=== PATIENT | male | born 1940 | race Caucasian/White ===

== ENCOUNTER 2025-05-02 13:46 | Outpatient (REF) | payer MEDICARE, OTHER, SELFPAY ==
--- OUTSIDE RECORDS SUMMARY | 2025-03-03 15:10 | XMS_ITS | Encounter Summary ---
Author Organization [facility] Address [address] [place] [phone] Phone Care Team Providers Care Information Assurance Manager Name Role Phone Mita Madrigal DO Primary Care Provider + [phone] Encounter Details Date Type Department Care Team (Late st Contact Info) Description 03/03/2025 3:10 PM EDT Hospital Encounter [facility] [address] [place] [address] [phone] Judie Carlos PA-C [address] [place] [address] [email or web address] Social History Tobacco Use Types Packs/Day Years Used Date Smoking Tobacco: Never Assessed Education Answer Date Recorded Are you interested in more education? Not on raza e 03/03/2025 Are you concerned about learning? Not on file 03/03/2025 No 03/03/2025 No 03/03/2025 Digital Access Answer Date Recorded No 03/03/2025 No 03/03/2025 Reliable internet access at home? Not on file 03/03/2025 Device with a working camera? Not on file Sex and Gender Information Value Date Recorded Sex Assigned at Not on file Legal Sex Male 2:43 PM EDT Gender Identity Not on file Sexual Orientation Not on file documented as of this encounter Plan of Treatment Not on file documented as of this encounter Procedures Procedure Name Priority Date/Time Associated Diagnosis Comments XR RIBS 3 OR MORE VIEWS WITH PA CHEST (RIGHT) Routine 03/03/2025 3:18 PM EDT Closed fracture of multiple ribs of right side, initial encounter documented in this encounter Results * XR RIBS 3 OR MORE VIEWS WITH PA CHEST (RIGHT) (03/03/2025 3:18 PM EDT) Anatomical Region Laterality Modality Chest Computed Radiogr aphy 03/03/2025 3:31 PM EDT Impressions 03/03/2025 3:42 PM EDT Acute mildly displaced fractures of the right lateral 8th-10th ribs. No pneumothorax. Narrative 03/03/2025 3:42 PM EDT XR RIBS 3 OR MORE VIEWS WITH PA CHEST (RIGHT) Referring clinician's provided indication for this examination in [facility]: Pain; S/P Fall COMPARISON: None. FINDINGS: Devices/Tubes/Lines: None. Lungs: Left basilar linear opacity, likely subsegmental atelectasis. No focal consolidation or pulmonary edema. Pleura: No pleural effusion or pneumothorax. Heart/Mediastinum: Normal heart and mediastinum. Bones/Soft Tissues: Acute mildly displaced fracture of the right lateral 8th- 10th ribs. Degenerative changes of the spine. Procedure Note Daron Lopez MD - 03/03/2025 XR RIBS 3 OR MORE VIEWS WITH PA CHEST (RIGHT) Referring clinician's provided indication for this examination in [facility]:Pain; S/P Fall COMPARISON: None. FINDINGS: Devices/Tubes/Lines: None. Lungs: Left basilar linear opacity, likely subsegmental atelectasis. Nofocal consolidation or pulmonary edema. Pleura: No pleural effusion or pneumothorax. Heart/Mediastinum: Normal heart and mediastinum. Bones/Soft Tissues: Acute mildly displaced fracture of the right [id number] ribs. Degenerative changes of the spine. IMPRESSION: Acute mildly displaced fractures of the right lateral 8th-10th ribs. Nopneumothorax. Judie Carlos PA-C IMG XR CHEST Final Result documented in this encounter Visit Diagnoses Not on filedocumented in this encounter Care Teams Information Assurance Manager Relationship Specialty Start Date End Date Mita Madrigal DO [address] [place] [address] PCP - General Internal Medicine 03/03/25 documented as of this encounter Additional Source Comments The information contained in this document represents components of the legal health record. It is not the complete legal health record.[facility]
--- OUTSIDE RECORDS SUMMARY | 2025-05-02 14:37 | XMS_ITS | Clinical Summary ---
Author Organization [facility] Address [address] [place] [phone] Phone Care Team Providers Care Well Cleaner Name Role Phone Mita Madrigal DO Primary Care Provider + [phone] Allergies No known active allergies Medications traZODone (DESYREL) 50 MG tablet TAKE 0.5 TABLET BY MOUTH TWO TIMES A DAY NEEDED FOR INSOMNIA 03/01/2025 Active sertraline (ZOLOFT) 50 MG tablet TAKE 1/2 TABLET 25MG) BY MOUTH EVERY MORNING FOR 1 WEEK THEN INCREASE TO 1 TABLET 50MG) DAILY 02/18/2025 Active rosuvastatin (CRESTOR) 40 MG tablet Take 1 tablet by mouth every morning. 02/23/2025 Active gabapentin (NEURONTIN) 300 MG capsule Take 300 mg by mouth 3 (three) times a day. 02/08/2025 Active LANTUS SOLOSTAR U-100 INSULIN 100 unit/mL (3 mL) InPn injection pen INJECT 20 UNITS UNDER THE SKIN EVERY MORNING 02/09/2025 Active levothyroxine (SYNTHROID, LEVOTHROID) 100 MCG tablet Take 100 mcg by mouth every morning. Active losartan (COZAAR) 100 MG tablet Take 100 mg by mouth daily. Active insulin lispro (ADMELOG, HUMALOG) 100 unit/mL injection pen Inject 6 Units under the skin 3 (three) times a day with meals. Sliding scale Active albuterol 90 mcg/actuation inhaler Inhale 2 puffs into the lungs every 6 (six) hours as needed for wheezing. Active metoprolol tartrate (LOPRESSOR) 25 MG tablet Take 25 mg by mouth 2 (two) times a day. Active clopidogrel (PLAVIX) 75 mg tablet Take 75 mg by mouth daily. Active Active Problems Problem Noted Date Diagnosed Date Multiple closed fractures of ribs of right side 03/03/2025 Encounters Date Type Department Care Team Description 03/03/2025 3:10 PM EDT Hospital Encounter [facility] [address] [place] [id number] Judie Carlos PA-C 03/03/2025 2:50 PM EDT Office Visit [facility] at [address] [address] Judie Carlos PA-C Closed fracture of multiple ribs of right side, initial encounter (Primary Dx) from Last 3 Months Social History Tobacco Use Types Packs/Day Years [...] on file Sexual Orientation Not on file Last Filed Vital Signs Vital Sign Reading Time Taken Comments Blood Pressure 93/71 03/03/2025 2:59 PM EDT Pulse 65 03/03/2025 2:59 PM EDT Temperature 37.3 C (99.2 F) 03/03/2025 2:59 PM EDT Respiratory Rate 16 03/03/2025 2:59 PM EDT Oxygen Saturation 99% 03/03/2025 2:59 PM EDT Inhaled Oxygen Concentration - - Weight - - Height - - Body Mass Index - - Plan of Treatment Health Maintenance Due Date Last Done Comments Adult Td,Tdap Booster 1941 CREATININE LEVEL 1941 POTASSIUM LEVEL 1941 TSH LEVEL 1941 DEPRESSION SCREENING 1953 PNEUMOCOCCAL VACCINES (50+ y ears) (1 of 1 - PCV) 1991 ZOSTER VACCINES (1 of 2) 1991 RSV VACCINE (1 - 1-dose 75+ series) 01/21/2016 COVID-19 VACCINE ( - 2023-2 5 season) 2024 HEPATITIS A VACCINES Aged Out No long er eligible based on patient's age to complete this topic HIB VACCINES Aged Out No longer eligi ble based on patient's age to complete this topic MENINGOCOCCAL VACCINES (ACWY) Aged Out No longer eligible based on patient's age to complete this topic MENINGOCOCCAL VACCINES (B) Aged Out N o longer eligible based on patient's age to complete this topic Medical Devices Not on file Procedures Procedure Name Priority Date/Time Associated Diagnosis Comments XR RIBS 3 OR MORE VIEWS WITH PA CHEST (RIGHT) Routine 03/03/2025 3:18 PM EDT Closed fracture of multiple ribs of right side, initial encounter from Last 3 Months Results * XR RIBS 3 OR MORE [...] clinician's provided indication for this examination in Epic: Pain; S/P Fall COMPARISON: None. FINDINGS: Devices/Tubes/Lines: [...] clinician's provided indication for this examination in Epic:Pain; S/P Fall COMPARISON: None. FINDINGS: Devices/Tubes/Lines: None. Lungs: Left basilar linear opacity, likely subsegmental atelectasis. Nofocal consolidation or pulmonary edema. Pleura: No pleural effusion or pneumothorax. Heart/Mediastinum: Normal heart and mediastinum. Bones/Soft Tissues: Acute mildly displaced fracture of the right [id number] ribs. Degenerative changes of the spine. IMPRESSION: Acute mildly displaced fractures of the right lateral 8th-10th ribs. Nopneumothorax. Judie Carlos PA-C IMG XR CHEST Final Result from Last 3 Months [place] [address] MEDICARE PART A & B Member Subscriber Plan / Payer (Ef fective 2021-Present) Name:Navjot Townsend Member ID:[id number] Relation to Subscriber:Self Name:Navjot Townsend Subscriber ID:[id number] Payer ID:[id number] Group ID:Not on file Type:Medicare Address: [address] [place] [id number] MEDICARE SUPPLEMENT MEDICARE PART A & B Member Subscriber Plan / Payer (Ef fective 2021-) Name:Navjot Townsend Member ID:[id number] Relation to Subscriber:Self Name:Navjot Townsend Subscriber ID:[id number] Payer ID:[id number] Group ID:Not on file Type:Medicare Address: [facility] [employer] [facility] [address] MEDICARE SUPPLEMENT MEDICARE PART A & B MEDICARE SUPPLEMENT MEDICARE PART A & B Member Subscriber Plan / Payer (Ef fective 2021-) Name:Navjot Townsend Member ID:[id number] Relation to Subscriber:Self Name:Navjot Townsend Subscriber ID:[id number] Payer ID:[id number] Group ID:Not on file Type:Medicare Address: [employer] [address] MEDICARE SUPPLEMENT ([place]) [address] [place] [address] MEDICARE PART A & B MEDICARE SUPPLEMENT MEDICARE PART A & B [facility] MEDICARE SUPPLEMENT Advance Directives For more information, please contact: [phone] (9AM - 5PM [facility], Wednesday-Wednesday) Healthcare Agents on File Name Relationship Healthcare Agent [facility] Communication irais Townsend Spouse Other (no proxy form on file ) Care Teams Well Cleaner Relationship Specialty Start Date End Date Mita Madrigal DO [address] [facility] [facility] [address] [place] [address] PCP - General Internal Medicine 03/03/25 Additional Source Comments The information contained in this document represents components of the legal health record. It is not the complete legal health record.[facility]
[2025-05-02 18:53] LABS: Thyroid Stimulating Hormone 0.14 uIU/mL (0.32-4.0)
== END 2025-05-02 13:47 | disposition home or self-care (01) ==
LOC: HO.WFDLDS 13:46
PROVIDERS: Visit Provider Internal Medicine
DX: Z00.00 Encounter for general adult medical examination without abnormal findings (principal); E03.9 Hypothyroidism, unspecified
CPT/HCPCS: 36415; 84436; 84443; 84481

== ENCOUNTER 2025-08-10 10:20 | Emergency (ER) | payer MEDICARE, OTHER, SELFPAY ==
--- NOTE | ~2025-08-10 | CT_ITS ---
EXAMINATION: CT HEAD WITHOUT IV CONTRAST HISTORY: ams. TECHNIQUE: Unenhanced helical CT of the head was performed per standard departmental protocol. Coronal and sagittal reformats of the head were also evaluated. One or more of the following techniques was used for dose reduction: Automated exposure control, adjustment of the mA and/or kV according to patient size, use of iterative reconstruction technique. DLP: 701 mGy-cm COMPARISON: There are no prior studies available for comparison. FINDINGS: BRAIN: There is diffuse prominence of the ventricular system and cortical sulci, consistent with atrophy. Periventricular and subcortical white matter hypodensities are noted which are nonspecific, but often seen in the setting of small vessel ischemic disease. There is no mass effect or midline shift. No intra- or extra-axial fluid collections are identified. SINUSES: The visualized paranasal sinuses are clear. The mastoid air cells and middle ear cavities are well pneumatized. ORBITS: The visualized orbits are unremarkable. BONES/SOFT TISSUES: The extracranial soft tissues are unremarkable. The calvarium is intact. No suspicious lytic or sclerotic lesions. CT/CT head/brain wo IV con IMPRESSION: Cerebral atrophy and findings consistent with small vessel ischemic disease of the white matter. No evidence of intracranial hemorrhage. Electronically signed by: Titus Vargas MD 08/10/2025 11:43 AM [facility] [place] [place]
[2025-08-10 10:38] VITALS: BP 149/64; PULSE 73; RESP 18; TEMP 36.3; O2SAT 97
--- NOTE | 2025-08-10 10:43 | ECG_ITS ---
Test Reason : AMS Blood Pressure : */* mmHG Vent. Rate : 65 BPM Atrial Rate : 65 BPM P-R Int : 162 ms QRS Dur : 86 ms QT Int : 394 ms P-R-T Axes : 77 -31 69 degrees QTcB Int : 409 ms Normal sinus rhythm Left axis deviation Anteroseptal infarct , age undetermined Abnormal ECG No previous ECGs available Referred By: Jarrell Toscano Electronically Signed By: THAI COLORADO
[2025-08-10 10:48] VITALS: BP 176/75; PULSE 61; O2SAT 94; BMI 30.4
--- NOTE | 2025-08-10 10:58 | ED_ITS ---
HPI - General Adult General Chief complaint: Altered Mental Status Stated complaint: WANDERING/DOESN'T KNOW WHY,?FAILURE TO THRIVE Time Seen by Provider: 08/10/25 11:20 Source: patient and EMS Mode of arrival: EMS Limitations: altered mental status History of Present Illness ED Provider: MICHAEL Toscano HPI narrative: 85 year old male brought to the emergency department after being found wandering outside for longer than usual. Patient reports feeling ?a little confused.? He denies pain of any kind, chest pain, shortness of breath, nausea, vomiting, or recent falls. He states that he is voiding without difficulty. He acknowledges having been outside earlier despite the cold weather; he was dressed appropriately. He was found coming from the dirt earlier, . Hands noted to be ?a little cool? otherwise warm and functioning. Patient was wearing a winter jacket when found and there were no signs of trauma. Patient is unsure of any formal diagnosis of dementia. Daughter Ciara Galindo works at the hospital. Related Data Home Medications ?Medication ?Instructions ?Recorded ?Confirmed amlodipine 10 mg tablet 10 mg PO DAILY 08/10/2501/28 clopidogrel 75 mg tablet 75 mg PO DAILY 08/10/2501/28 fluticasone fur. 100 mcg-umeclid 1 ea inhalation DAILY 08/10/25 08/10/25 62.5 mcg-vilant 25 mcg inhalat.powder (Trelegy Ellipta) gabapentin 300 mg capsule 300 mg PO TID 08/10/2508/10 insulin glargine 100 unit/mL (3 20 unit subcut QAM 01/2808/10/25 mL) subcutaneous pen (Lantus Solostar U-100 Insulin) insulin lispro 100 unit/mL See Protocol subcut TIDAC 1 10/11/24 08/10/25 subcutaneous pen latanoprost 0.005 % eye drops 1 drp ophthalmic (eye) B EDTIME 08/10/25 08/10/25 levothyroxine 100 mcg tablet 100 mcg PO DAILY 08/10/25 08/10/25 levothyroxine 50 mcg tablet 50 mcg PO DAILY 08/10/25 1 10/11/24 losartan 100 mg tablet 100 mg PO DAILY 08/10/2501/28 metoprolol succinate 25 mg 25 mg PO DAILY 08/10/2501/28 tablet,extended release 24 hr nitroglycerin 0.4 mg sublingual 0.4 mg sublingual N EEDED PRN 08/10/25 08/10/25 tablet Chest Pain rosuvastatin 40 mg tablet 40 mg PO DAILY 08/10/2501/28 sertraline 50 mg tablet 50 mg PO DAILY 08/10/2501/28 tamsulosin 0.4 mg capsule 0.4 mg PO BEDTIME 08/10/25 1 10/11/24 trazodone 50 mg tablet 50 mg PO BID 08/10/25 Allergies Allergy/AdvReac Type Severity Reaction Status Date / Time Unable to Assess Allergy Verified 08/10/25 10:53 Review of Systems 2 Review of Systems: Yes Unobtainable due to mental status PMFSH Past Medical History Attestation statement: The following information was validated with the patient. Source: old records reviewed and nursing notes reviewed Social History Social History Use of substances other than those prescribed or required for medical reasons: No Advance Directives: No Advance Directives Information Provided: Yes Physical Exam ED Exam Exam: General: Elderly male, alert, conversational, no acute distress. Mental Status: Knows own name and location (?[facility],? ?[place]?); unable to state current date; admits to feeling confused. Extremities: Hands slightly cool to touch per inspection; no deformity noted. CV: RRR Lungs: CTA Abd: soft non tender non distended Neuro: normal sensory and motor. Vital Signs: Vital Signs - 24 hr 08/16/25 14:00 08/16/25 21:25 08/17/25 06:20 Temperature 98.2 F 99.7 F 97.9 F Pulse Rate 67 65 61 Respiratory Rate 16 18 16 Blood Pressure 122/56 L 114/56 L 141/59 H Pulse Oximetry 96 94 94 Oxygen Delivery Method Room Air Room Air Room Air 08/17/25 08:36 Temperature Pulse Rate 69 Respiratory Rate 16 Blood Pressure Pulse Oximetry 97 Oxygen Delivery Method Room Air BMI result Body Mass Index 30.4 Course Reevaluation(s) Reevaluation #1: CBC with a normocytic anemia appears to be Around baseline. Chemistry around baseline no acute findings. Coags unremarkable. UA clean. Flu, COVID, RSV negative. 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 Time: 12:30 Reevaluation #2: Family at bedside states she does not feel comfortable caring for him at home she is overwhelmed he continues to elope in the middle of the night and she is afraid something bad may happen. They are requesting psychiatry consult. Time: 13:04 Reevaluation #3: At this time patient will be placed into observation to allow more time to be evaluated by PT, case management and psych. Time: 13:05 Additional Reevaluation(s): 1945 Provider: Agatha Tellez PA-C, rec'd message from RN that patient's med rec has been confirmed, med rec done and ordered. Time: 18:07 Date: 08/11/25 Provider: MICHAEL Castellanos Patient in physician observation for case management needs. No acute events reported overnight.? awaiting case management disposition. Patient had an episode of hypoglycemia this morning, therefore we held long-acting insulin. Patient received his long-acting before bedtime last night which she typically receives in the morning. Will monitor sugars throughout the day today. Awaiting case management disposition. Time: 19:25 Date: 08/12/25 Provider: MICHAEL Castellanos Patient in physician observation for case management needs. Patient's glucose this morning for 66, he did not receive his long-acting insulin therefore given long-acting insulin, repeat blood sugar in 2 hours reveal glucose 437 therefore he was given short-acting insulin. We will continue to monitor. 13:40 08/12/2025 (Dionne Bains PA-C): Sugar is 334 after lunch. Will continue to monitor. 7:27 PM 08/12/2025 (Dionne Bains PA-C): Called over to overflow to have them repeat point of care. Sign out given to Cathleen Hernandez PA-C to monitor glucose +/- needing insulin 9:32pm 08/12/25 (Cathleen Hernandez PA-C): Patient POC 191. No further intervention needed at this time. Time: 08:38 Date: 08/13/25 Provider: Cathleen Hernandez PA-C Patient in physician observation for case management needs. No acute events reported overnight.? No current issues or complaints. VS stable. Awaiting PRANAV VS LTC placement, referrals have been placed by . Will continue to monitor as we await disposition. 0819 08/14/2025 MICHAEL Toscano Physician observation continued. Uneventful night. Vital signs stable. No complaints from nursing overnight. Med reconciliation reviewed and done. Pending disposition. Will continue to monitor. 08/15/2025 1048 Dona Paniagua PA-C ---> Observation continues. Case management continues to follow. 08/16/2025 0858 Dona Paniagua PA-C ---> Observation continues. Case management continues to follow. 08/17/2025 0827 BARRERA Hoffman: Physician observation continued, no overnight events reported by nursing. Vital signs stable. Case management following for disposition. 08/17/25 1133 BARRERA Baez: Per Colette Smith from , patient will be transferred to [facility] at 1430 today, 08/17/25. Observation care revealed that patient does not meet medical necessity for hospitalization. Medications Administered Generic Name Dose Route Start Last Admin Trade Name Freq PRN Reason Stop Dose Admin Amlodipine Besylate 10 mg 08/11/25 09:00 08/17/25 08:37 Amlodipine Besylate 10 Mg Tablet PO 10 mg DAILY SUNIL Administration Protocol Atorvastatin Calcium 80 mg 08/10/25 21:00 08/16/25 20:49 Atorvastatin Calcium 80 Mg Tablet PO 80 mg BEDTIME SUNIL Administration Clopidogrel Bisulfate 75 mg 08/11/25 09:00 08/17/25 08:37 Clopidogrel Bisulfate 75 Mg Tablet PO 75 mg DAILY SUNIL Administration Fluticasone/Umeclidinium/Vilanterol 1 puff 08/11/25 08:00 08/17/25 07:41 Fluticasone/Umeclidinium/Vilanterol 100/62.5/25 Blst.W.Dev INHALE 1 puff RDAILY SUNIL Administration Gabapentin 300 mg 08/10/25 21:00 08/17/25 08:37 Gabapentin 300 Mg Capsule PO 300 mg TID SUNIL Administration Insulin Glargine 20 unit 08/10/25 19:45 08/17/25 08:37 Insulin Glargine,Hum.Rec.Anlog 100 Unit/Ml 10 Ml Vial SUBCUT 20 unit DAILY SUNIL Administration Insulin Human Lispro 0 unit 08/10/25 21:00 08/17/25 07:40 Insulin Lispro 100 Unit/Ml 3 Ml Vial SUBCUT 4 unit QIDACHS SUNIL Administration Protocol Latanoprost 1 drop 08/10/25 21:00 08/16/25 22:05 Latanoprost 0.005 % Ophth Treva 2.5 Ml Drops EYE-BOTH Not Given BEDTIME SUNIL Levothyroxine Sodium 100 mcg 08/11/25 06:00 08/17/25 06:16 Levothyroxine Sodium 100 Mcg Tablet PO 100 mcg DAILY@0600 SUNIL Administration Levothyroxine Sodium 50 mcg 08/11/25 06:00 08/17/25 06:16 Levothyroxine Sodium 50 Mcg Tablet PO 50 mcg DAILY@0600 SUNIL Administration Losartan Potassium 100 mg 08/11/25 09:00 08/17/25 08:37 Losartan Potassium 50 Mg Tablet PO 100 mg DAILY SUNIL Administration Protocol Metoprolol Succinate 25 mg 08/11/25 09:00 08/17/25 08:37 Metoprolol Succinate Er 25 Mg Tab.Er.24h PO 25 mg DAILY SUNIL Administration Protocol Sertraline HCl 50 mg 08/11/25 09:00 08/17/25 08:37 Sertraline Hcl 50 Mg Tablet PO 50 mg DAILY SUNIL Administration Tamsulosin HCl 0.4 mg 08/10/25 21:00 08/16/25 20:49 Tamsulosin Hcl 0.4 Mg Capsule PO 0.4 mg BEDTIME SUNIL Administration Trazodone HCl 50 mg 08/10/25 21:00 08/17/25 08:37 Trazodone Hcl 50 Mg Tablet PO 50 mg BID SUNIL Administration Medical Decision Making Medical Decision Making [facility] Narrative: Patient is an elderly male presenting with acute confusion and episode of prolonged wandering. Patient has a history of wandering outside multiple times, with this episode being longer than usual; details of recovery are unclear per family. Further assessment, diagnostics, and management plan are pending. Problem #1: Altered mental status / wandering Assessment: Patient reports confusion and was found wandering outside for an extended period. Oriented to name and place but not date; denies pain or other acute symptoms. Plan: * labs * imaging of head * urine * will speak to family Differential Diagnosis Differential Diagnoses: The differential diagnosis associated with the presentation includes Differential Diagnosis: * Delirium (multifactorial: possible infection, metabolic derangement, medication effect, environmental exposure) * Dementia (acute exacerbation or undiagnosed) * Hypothermia (recent exposure to cold environment) * Hypoglycemia * Stroke or transient ischemic attack (TIA) * Seizure or post-ictal state * Intoxication (alcohol or other substances) * Primary psychiatric disorder * Dehydration * Trauma (including occult head injury) Admission/Observation Consideration of admission/observation: Escalation of care including admission/observation considered (possible ) Lab Data 08/10/25 11:19 08/10/25 11:19 Labs: Lab Results 08/10/25 08/10/25 08/10/25 Range/Units 11:19 11:50 12:00 WBC 6.5 (4.8-10.8) X10*3/uL RBC 4.60 (4.60-5.80) X10*6/uL Hgb 12.3 L (14.0-18.0) g/dl Hct 37.9 L D (42.0-52.0) % MCV 82.4 (80.0-98.0) fL MCH 26.7 L (27.0-33.0) pg MCHC 32.5 (31.0-36.0) g/dl RDW 13.5 (11.0-16.0) % Plt Count 199 (160-400) X10*3/uL MPV 10.0 (9.4-12.4) fL Immature Gran % (Auto) 0.3 (0.0-0.4) % Neut % (Auto) 75.0 H (45-73) % Lymph % (Auto) 14.5 L (20-40) % [place] % (Auto) 9.4 (2-11) % Eos % (Auto) 0.6 (0-4) % Baso % (Auto) 0.2 (0-2) % Lymph # (Auto) 0.9 L (1.2-4.9) X10*3/uL [place] # (Auto) 0.6 (0.1-1.2) X10*3/uL Eos # (Auto) 0.0 (0.0-0.4) X10*3/uL Baso # (Auto) 0.0 (0.0-0.2) X10*3/uL Abs Immat Gran (auto) 0.02 (0.00-0.03) X10*3/uL Absolute Neuts (auto) 4.9 (2.0-8.3) x10*3/uL Absolute Nucleated RBC 0.000 (0.0-0.012) X10*3/uL Nucleated RBC % (auto) 0.0 (0.0-0.2) /100WBC PT 12.3 (11.2-13.5) SEC INR 1.0 (0.9-1.1) Sodium 140 (135-145) mmol/L Potassium 4.6 (3.3-5.1) mmol/L Chloride 104 (96-108) mmol/L Carbon Dioxide 30 H (22-29) mmol/L Anion Gap 11 L (12-20) BUN 21 H (9-16) mg/dL Creatinine 0.84 (0.5-1.4) mg/dL Estim Creat Clear Calc 58.2 Estimated GFR > 60 POC Glucose 82 (60-115) mg/dL Random Glucose 97 (60-115) mg/dL Calcium 9.6 D (8.4-10.2) mg/dL Magnesium 2.2 (1.6-2.6) mg/dL Total Bilirubin 0.3 (0.0-1.0) mg/dL AST 26 (5-37) U/L ALT 21 (0-40) U/L Alkaline Phosphatase 111 (39-117) U/L Troponin I High Sens 9.4 (<3.5-35.0) ng/L Total Protein 7.2 (6.5-8.0) g/dL Albumin 4.6 (3.5-5.0) g/dL Urine Color Yellow Urine Appearance Clear Urine pH 8.0 (5.0-9.0) Ur Specific Rankin <= 1.005 (1.005-1.025) Urine Protein Negative (Neg-Trace) mg/dL Urine Glucose (UA) Negative (Negative) mg/dL Urine Ketones Negative (Negative) mg/dL Urine Blood Negative (Negative) Urine Nitrite Negative (Negative) Ur Leukocyte Esterase Negative (Negative) Influenza Type A (PCR) NEGATIVE (Negative) Influenza Type B (PCR) NEGATIVE (Negative) RSV RNA Qual (PCR) NEGATIVE (Negative) SARS-CoV-2 RNA (RT-PCR) NEGATIVE (Negative) 08/10/25 08/11/25 08/11/25 Range/Units 20:39 07:13 07:42 WBC (4.8-10.8) X10*3/uL RBC (4.60-5.80) X10*6/uL Hgb (14.0-18.0) g/dl Hct (42.0-52.0) % MCV (80.0-98.0) fL MCH (27.0-33.0) pg MCHC (31.0-36.0) g/dl RDW (11.0-16.0) % Plt Count (160-400) X10*3/uL MPV (9.4-12.4) fL Immature Gran % (Auto) (0.0-0.4) % Neut % (Auto) (45-73) % Lymph % (Auto) (20-40) % [place] % (Auto) (2-11) % Eos % (Auto) (0-4) % Baso % (Auto) (0-2) % Lymph # (Auto) (1.2-4.9) X10*3/uL [place] # (Auto) (0.1-1.2) X10*3/uL Eos # (Auto) (0.0-0.4) X10*3/uL Baso # (Auto) (0.0-0.2) X10*3/uL Abs Immat Gran (auto) (0.00-0.03) X10*3/uL Absolute Neuts (auto) (2.0-8.3) x10*3/uL Absolute Nucleated RBC (0.0-0.012) X10*3/uL Nucleated RBC % (auto) (0.0-0.2) /100WBC PT (11.2-13.5) SEC INR (0.9-1.1) Sodium (135-145) mmol/L Potassium (3.3-5.1) mmol/L Chloride (96-108) mmol/L Carbon Dioxide (22-29) mmol/L Anion Gap (12-20) BUN (9-16) mg/dL Creatinine (0.5-1.4) mg/dL Estim Creat Clear Calc Estimated GFR POC Glucose 210 H 54 L* 79 (60-115) mg/dL Random Glucose (60-115) mg/dL Calcium (8.4-10.2) mg/dL Magnesium (1.6-2.6) mg/dL Total Bilirubin (0.0-1.0) mg/dL AST (5-37) U/L ALT (0-40) U/L Alkaline Phosphatase (39-117) U/L Troponin I High Sens (<3.5-35.0) ng/L Total Protein (6.5-8.0) g/dL Albumin (3.5-5.0) g/dL Urine Color Urine Appearance Urine pH (5.0-9.0) Ur Specific Rankin (1.005-1.025) Urine Protein (Neg-Trace) mg/dL Urine Glucose (UA) (Negative) mg/dL Urine Ketones (Negative) mg/dL Urine Blood (Negative) Urine Nitrite (Negative) Ur Leukocyte Esterase (Negative) Influenza Type A (PCR) (Negative) Influenza Type B (PCR) (Negative) RSV RNA Qual (PCR) (Negative) SARS-CoV-2 RNA (RT-PCR) (Negative) 08/11/25 08/11/25 08/11/25 Range/Units 11:13 16:27 21:10 WBC (4.8-10.8) X10*3/uL RBC (4.60-5.80) X10*6/uL Hgb (14.0-18.0) g/dl Hct (42.0-52.0) % MCV (80.0-98.0) fL MCH (27.0-33.0) pg MCHC (31.0-36.0) g/dl RDW (11.0-16.0) % Plt Count (160-400) X10*3/uL MPV (9.4-12.4) fL Immature Gran % (Auto) (0.0-0.4) % Neut % (Auto) (45-73) % Lymph % (Auto) (20-40) % [place] % (Auto) (2-11) % Eos % (Auto) (0-4) % Baso % (Auto) (0-2) % Lymph # (Auto) (1.2-4.9) X10*3/uL [place] # (Auto) (0.1-1.2) X10*3/uL Eos # (Auto) (0.0-0.4) X10*3/uL Baso # (Auto) (0.0-0.2) X10*3/uL Abs Immat Gran (auto) (0.00-0.03) X10*3/uL Absolute Neuts (auto) (2.0-8.3) x10*3/uL Absolute Nucleated RBC (0.0-0.012) X10*3/uL Nucleated RBC % (auto) (0.0-0.2) /100WBC PT (11.2-13.5) SEC INR (0.9-1.1) Sodium (135-145) mmol/L Potassium (3.3-5.1) mmol/L Chloride (96-108) mmol/L Carbon Dioxide (22-29) mmol/L Anion Gap (12-20) BUN (9-16) mg/dL Creatinine (0.5-1.4) mg/dL Estim Creat Clear Calc Estimated GFR POC Glucose 278 H 288 H 273 H (60-115) mg/dL Random Glucose (60-115) mg/dL Calcium (8.4-10.2) mg/dL Magnesium (1.6-2.6) mg/dL Total Bilirubin (0.0-1.0) mg/dL AST (5-37) U/L ALT (0-40) U/L Alkaline Phosphatase (39-117) U/L Troponin I High Sens (<3.5-35.0) ng/L Total Protein (6.5-8.0) g/dL Albumin (3.5-5.0) g/dL Urine Color Urine Appearance Urine pH (5.0-9.0) Ur Specific Rankin (1.005-1.025) Urine Protein (Neg-Trace) mg/dL Urine Glucose (UA) (Negative) mg/dL Urine Ketones (Negative) mg/dL Urine Blood (Negative) Urine Nitrite (Negative) Ur Leukocyte Esterase (Negative) Influenza Type A (PCR) (Negative) Influenza Type B (PCR) (Negative) RSV RNA Qual (PCR) (Negative) SARS-CoV-2 RNA (RT-PCR) (Negative) 08/12/25 08/12/25 08/12/25 Range/Units 08:14 10:39 13:28 WBC (4.8-10.8) X10*3/uL RBC (4.60-5.80) X10*6/uL Hgb (14.0-18.0) g/dl Hct (42.0-52.0) % MCV (80.0-98.0) fL MCH (27.0-33.0) pg MCHC (31.0-36.0) g/dl RDW (11.0-16.0) % Plt Count (160-400) X10*3/uL MPV (9.4-12.4) fL Immature Gran % (Auto) (0.0-0.4) % Neut % (Auto) (45-73) % Lymph % (Auto) (20-40) % [place] % (Auto) (2-11) % Eos % (Auto) (0-4) % Baso % (Auto) (0-2) % Lymph # (Auto) (1.2-4.9) X10*3/uL [place] # (Auto) (0.1-1.2) X10*3/uL Eos # (Auto) (0.0-0.4) X10*3/uL Baso # (Auto) (0.0-0.2) X10*3/uL Abs Immat Gran (auto) (0.00-0.03) X10*3/uL Absolute Neuts (auto) (2.0-8.3) x10*3/uL Absolute Nucleated RBC (0.0-0.012) X10*3/uL Nucleated RBC % (auto) (0.0-0.2) /100WBC PT (11.2-13.5) SEC INR (0.9-1.1) Sodium (135-145) mmol/L Potassium (3.3-5.1) mmol/L Chloride (96-108) mmol/L Carbon Dioxide (22-29) mmol/L Anion Gap (12-20) BUN (9-16) mg/dL Creatinine (0.5-1.4) mg/dL Estim Creat Clear Calc Estimated GFR POC Glucose 466 H* 437 H* 334 H (60-115) mg/dL Random Glucose (60-115) mg/dL Calcium (8.4-10.2) mg/dL Magnesium (1.6-2.6) mg/dL Total Bilirubin (0.0-1.0) mg/dL AST (5-37) U/L ALT (0-40) U/L Alkaline Phosphatase (39-117) U/L Troponin I High Sens (<3.5-35.0) ng/L Total Protein (6.5-8.0) g/dL Albumin (3.5-5.0) g/dL Urine Color Urine Appearance Urine pH (5.0-9.0) Ur Specific Rankin (1.005-1.025) Urine Protein (Neg-Trace) mg/dL Urine Glucose (UA) (Negative) mg/dL Urine Ketones (Negative) mg/dL Urine Blood (Negative) Urine Nitrite (Negative) Ur Leukocyte Esterase (Negative) Influenza Type A (PCR) (Negative) Influenza Type B (PCR) (Negative) RSV RNA Qual (PCR) (Negative) SARS-CoV-2 RNA (RT-PCR) (Negative) 08/12/25 08/12/25 08/13/25 Range/Units 15:57 19:34 07:26 WBC (4.8-10.8) X10*3/uL RBC (4.60-5.80) X10*6/uL Hgb (14.0-18.0) g/dl Hct (42.0-52.0) % MCV (80.0-98.0) fL MCH (27.0-33.0) pg MCHC (31.0-36.0) g/dl RDW (11.0-16.0) % Plt Count (160-400) X10*3/uL MPV (9.4-12.4) fL Immature Gran % (Auto) (0.0-0.4) % Neut % (Auto) (45-73) % Lymph % (Auto) (20-40) % [place] % (Auto) (2-11) % Eos % (Auto) (0-4) % Baso % (Auto) (0-2) % Lymph # (Auto) (1.2-4.9) X10*3/uL [place] # (Auto) (0.1-1.2) X10*3/uL Eos # (Auto) (0.0-0.4) X10*3/uL Baso # (Auto) (0.0-0.2) X10*3/uL Abs Immat Gran (auto) (0.00-0.03) X10*3/uL Absolute Neuts (auto) (2.0-8.3) x10*3/uL Absolute Nucleated RBC (0.0-0.012) X10*3/uL Nucleated RBC % (auto) (0.0-0.2) /100WBC PT (11.2-13.5) SEC INR (0.9-1.1) Sodium (135-145) mmol/L Potassium (3.3-5.1) mmol/L Chloride (96-108) mmol/L Carbon Dioxide (22-29) mmol/L Anion Gap (12-20) BUN (9-16) mg/dL Creatinine (0.5-1.4) mg/dL Estim Creat Clear Calc Estimated GFR POC Glucose 373 H* 191 H 176 H (60-115) mg/dL Random Glucose (60-115) mg/dL Calcium (8.4-10.2) mg/dL Magnesium (1.6-2.6) mg/dL Total Bilirubin (0.0-1.0) mg/dL AST (5-37) U/L ALT (0-40) U/L Alkaline Phosphatase (39-117) U/L Troponin I High Sens (<3.5-35.0) ng/L Total Protein (6.5-8.0) g/dL Albumin (3.5-5.0) g/dL Urine Color Urine Appearance Urine pH (5.0-9.0) Ur Specific Rankin (1.005-1.025) Urine Protein (Neg-Trace) mg/dL Urine Glucose (UA) (Negative) mg/dL Urine Ketones (Negative) mg/dL Urine Blood (Negative) Urine Nitrite (Negative) Ur Leukocyte Esterase (Negative) Influenza Type A (PCR) (Negative) Influenza Type B (PCR) (Negative) RSV RNA Qual (PCR) (Negative) SARS-CoV-2 RNA (RT-PCR) (Negative) 08/13/25 08/13/25 08/13/25 Range/Units 11:40 16:48 20:18 WBC (4.8-10.8) X10*3/uL RBC (4.60-5.80) X10*6/uL Hgb (14.0-18.0) g/dl Hct (42.0-52.0) % MCV (80.0-98.0) fL MCH (27.0-33.0) pg MCHC (31.0-36.0) g/dl RDW (11.0-16.0) % Plt Count (160-400) X10*3/uL MPV (9.4-12.4) fL Immature Gran % (Auto) (0.0-0.4) % Neut % (Auto) (45-73) % Lymph % (Auto) (20-40) % [place] % (Auto) (2-11) % Eos % (Auto) (0-4) % Baso % (Auto) (0-2) % Lymph # (Auto) (1.2-4.9) X10*3/uL [place] # (Auto) (0.1-1.2) X10*3/uL Eos # (Auto) (0.0-0.4) X10*3/uL Baso # (Auto) (0.0-0.2) X10*3/uL Abs Immat Gran (auto) (0.00-0.03) X10*3/uL Absolute Neuts (auto) (2.0-8.3) x10*3/uL Absolute Nucleated RBC (0.0-0.012) X10*3/uL Nucleated RBC % (auto) (0.0-0.2) /100WBC PT (11.2-13.5) SEC INR (0.9-1.1) Sodium (135-145) mmol/L Potassium (3.3-5.1) mmol/L Chloride (96-108) mmol/L Carbon Dioxide (22-29) mmol/L Anion Gap (12-20) BUN (9-16) mg/dL Creatinine (0.5-1.4) mg/dL Estim Creat Clear Calc Estimated GFR POC Glucose 288 H 217 H 205 H (60-115) mg/dL Random Glucose (60-115) mg/dL Calcium (8.4-10.2) mg/dL Magnesium (1.6-2.6) mg/dL Total Bilirubin (0.0-1.0) mg/dL AST (5-37) U/L ALT (0-40) U/L Alkaline Phosphatase (39-117) U/L Troponin I High Sens (<3.5-35.0) ng/L Total Protein (6.5-8.0) g/dL Albumin (3.5-5.0) g/dL Urine Color Urine Appearance Urine pH (5.0-9.0) Ur Specific Rankin (1.005-1.025) Urine Protein (Neg-Trace) mg/dL Urine Glucose (UA) (Negative) mg/dL Urine Ketones (Negative) mg/dL Urine Blood (Negative) Urine Nitrite (Negative) Ur Leukocyte Esterase (Negative) Influenza Type A (PCR) (Negative) Influenza Type B (PCR) (Negative) RSV RNA Qual (PCR) (Negative) SARS-CoV-2 RNA (RT-PCR) (Negative) 08/14/25 08/14/25 08/14/25 Range/Units 07:36 11:34 15:59 WBC (4.8-10.8) X10*3/uL RBC (4.60-5.80) X10*6/uL Hgb (14.0-18.0) g/dl Hct (42.0-52.0) % MCV (80.0-98.0) fL MCH (27.0-33.0) pg MCHC (31.0-36.0) g/dl RDW (11.0-16.0) % Plt Count (160-400) X10*3/uL MPV (9.4-12.4) fL Immature Gran % (Auto) (0.0-0.4) % Neut % (Auto) (45-73) % Lymph % (Auto) (20-40) % [place] % (Auto) (2-11) % Eos % (Auto) (0-4) % Baso % (Auto) (0-2) % Lymph # (Auto) (1.2-4.9) X10*3/uL [place] # (Auto) (0.1-1.2) X10*3/uL Eos # (Auto) (0.0-0.4) X10*3/uL Baso # (Auto) (0.0-0.2) X10*3/uL Abs Immat Gran (auto) (0.00-0.03) X10*3/uL Absolute Neuts (auto) (2.0-8.3) x10*3/uL Absolute Nucleated RBC (0.0-0.012) X10*3/uL Nucleated RBC % (auto) (0.0-0.2) /100WBC PT (11.2-13.5) SEC INR (0.9-1.1) Sodium (135-145) mmol/L Potassium (3.3-5.1) mmol/L Chloride (96-108) mmol/L Carbon Dioxide (22-29) mmol/L Anion Gap (12-20) BUN (9-16) mg/dL Creatinine (0.5-1.4) mg/dL Estim Creat Clear Calc Estimated GFR POC Glucose 283 H 298 H 335 H (60-115) mg/dL Random Glucose (60-115) mg/dL Calcium (8.4-10.2) mg/dL Magnesium (1.6-2.6) mg/dL Total Bilirubin (0.0-1.0) mg/dL AST (5-37) U/L ALT (0-40) U/L Alkaline Phosphatase (39-117) U/L Troponin I High Sens (<3.5-35.0) ng/L Total Protein (6.5-8.0) g/dL Albumin (3.5-5.0) g/dL Urine Color Urine Appearance Urine pH (5.0-9.0) Ur Specific Rankin (1.005-1.025) Urine Protein (Neg-Trace) mg/dL Urine Glucose (UA) (Negative) mg/dL Urine Ketones (Negative) mg/dL Urine Blood (Negative) Urine Nitrite (Negative) Ur Leukocyte Esterase (Negative) Influenza Type A (PCR) (Negative) Influenza Type B (PCR) (Negative) RSV RNA Qual (PCR) (Negative) SARS-CoV-2 RNA (RT-PCR) (Negative) 08/14/25 08/15/25 08/15/25 Range/Units 20:16 07:47 11:43 WBC (4.8-10.8) X10*3/uL RBC (4.60-5.80) X10*6/uL Hgb (14.0-18.0) g/dl Hct (42.0-52.0) % MCV (80.0-98.0) fL MCH (27.0-33.0) pg MCHC (31.0-36.0) g/dl RDW (11.0-16.0) % Plt Count (160-400) X10*3/uL MPV (9.4-12.4) fL Immature Gran % (Auto) (0.0-0.4) % Neut % (Auto) (45-73) % Lymph % (Auto) (20-40) % [place] % (Auto) (2-11) % Eos % (Auto) (0-4) % Baso % (Auto) (0-2) % Lymph # (Auto) (1.2-4.9) X10*3/uL [place] # (Auto) (0.1-1.2) X10*3/uL Eos # (Auto) (0.0-0.4) X10*3/uL Baso # (Auto) (0.0-0.2) X10*3/uL Abs Immat Gran (auto) (0.00-0.03) X10*3/uL Absolute Neuts (auto) (2.0-8.3) x10*3/uL Absolute Nucleated RBC (0.0-0.012) X10*3/uL Nucleated RBC % (auto) (0.0-0.2) /100WBC PT (11.2-13.5) SEC INR (0.9-1.1) Sodium (135-145) mmol/L Potassium (3.3-5.1) mmol/L Chloride (96-108) mmol/L Carbon Dioxide (22-29) mmol/L Anion Gap (12-20) BUN (9-16) mg/dL Creatinine (0.5-1.4) mg/dL Estim Creat Clear Calc Estimated GFR POC Glucose 107 212 H 152 H (60-115) mg/dL Random Glucose (60-115) mg/dL Calcium (8.4-10.2) mg/dL Magnesium (1.6-2.6) mg/dL Total Bilirubin (0.0-1.0) mg/dL AST (5-37) U/L ALT (0-40) U/L Alkaline Phosphatase (39-117) U/L Troponin I High Sens (<3.5-35.0) ng/L Total Protein (6.5-8.0) g/dL Albumin (3.5-5.0) g/dL Urine Color Urine Appearance Urine pH (5.0-9.0) Ur Specific Rankin (1.005-1.025) Urine Protein (Neg-Trace) mg/dL Urine Glucose (UA) (Negative) mg/dL Urine Ketones (Negative) mg/dL Urine Blood (Negative) Urine Nitrite (Negative) Ur Leukocyte Esterase (Negative) Influenza Type A (PCR) (Negative) Influenza Type B (PCR) (Negative) RSV RNA Qual (PCR) (Negative) SARS-CoV-2 RNA (RT-PCR) (Negative) 08/15/25 08/15/25 08/16/25 Range/Units 16:34 19:53 07:35 WBC (4.8-10.8) X10*3/uL RBC (4.60-5.80) X10*6/uL Hgb (14.0-18.0) g/dl Hct (42.0-52.0) % MCV (80.0-98.0) fL MCH (27.0-33.0) pg MCHC (31.0-36.0) g/dl RDW (11.0-16.0) % Plt Count (160-400) X10*3/uL MPV (9.4-12.4) fL Immature Gran % (Auto) (0.0-0.4) % Neut % (Auto) (45-73) % Lymph % (Auto) (20-40) % [place] % (Auto) (2-11) % Eos % (Auto) (0-4) % Baso % (Auto) (0-2) % Lymph # (Auto) (1.2-4.9) X10*3/uL [place] # (Auto) (0.1-1.2) X10*3/uL Eos # (Auto) (0.0-0.4) X10*3/uL Baso # (Auto) (0.0-0.2) X10*3/uL Abs Immat Gran (auto) (0.00-0.03) X10*3/uL Absolute Neuts (auto) (2.0-8.3) x10*3/uL Absolute Nucleated RBC (0.0-0.012) X10*3/uL Nucleated RBC % (auto) (0.0-0.2) /100WBC PT (11.2-13.5) SEC INR (0.9-1.1) Sodium (135-145) mmol/L Potassium (3.3-5.1) mmol/L Chloride (96-108) mmol/L Carbon Dioxide (22-29) mmol/L Anion Gap (12-20) BUN (9-16) mg/dL Creatinine (0.5-1.4) mg/dL Estim Creat Clear Calc Estimated GFR POC Glucose 95 175 H 164 H (60-115) mg/dL Random Glucose (60-115) mg/dL Calcium (8.4-10.2) mg/dL Magnesium (1.6-2.6) mg/dL Total Bilirubin (0.0-1.0) mg/dL AST (5-37) U/L ALT (0-40) U/L Alkaline Phosphatase (39-117) U/L Troponin I High Sens (<3.5-35.0) ng/L Total Protein (6.5-8.0) g/dL Albumin (3.5-5.0) g/dL Urine Color Urine Appearance Urine pH (5.0-9.0) Ur Specific [place] (1.005-1.025) Urine Protein (Neg-Trace) mg/dL Urine Glucose (UA) (Negative) mg/dL Urine Ketones (Negative) mg/dL Urine Blood (Negative) Urine Nitrite (Negative) Ur Leukocyte Esterase (Negative) Influenza Type A (PCR) (Negative) Influenza Type B (PCR) (Negative) RSV RNA Qual (PCR) (Negative) SARS-CoV-2 RNA (RT-PCR) (Negative) 08/16/25 08/16/25 08/16/25 Range/Units 11:17 16:03 20:27 WBC (4.8-10.8) X10*3/uL RBC (4.60-5.80) X10*6/uL Hgb (14.0-18.0) g/dl Hct (42.0-52.0) % MCV (80.0-98.0) fL MCH (27.0-33.0) pg MCHC (31.0-36.0) g/dl RDW (11.0-16.0) % Plt Count (160-400) X10*3/uL MPV (9.4-12.4) fL Immature Gran % (Auto) (0.0-0.4) % Neut % (Auto) (45-73) % Lymph % (Auto) (20-40) % [place] % (Auto) (2-11) % Eos % (Auto) (0-4) % Baso % (Auto) (0-2) % Lymph # (Auto) (1.2-4.9) X10*3/uL [place] # (Auto) (0.1-1.2) X10*3/uL Eos # (Auto) (0.0-0.4) X10*3/uL Baso # (Auto) (0.0-0.2) X10*3/uL Abs Immat Gran (auto) (0.00-0.03) X10*3/uL Absolute Neuts (auto) (2.0-8.3) x10*3/uL Absolute Nucleated RBC (0.0-0.012) X10*3/uL Nucleated RBC % (auto) (0.0-0.2) /100WBC PT (11.2-13.5) SEC INR (0.9-1.1) Sodium (135-145) mmol/L Potassium (3.3-5.1) mmol/L Chloride (96-108) mmol/L Carbon Dioxide (22-29) mmol/L Anion Gap (12-20) BUN (9-16) mg/dL Creatinine (0.5-1.4) mg/dL Estim Creat Clear Calc Estimated GFR POC Glucose 273 H 195 H 130 H (60-115) mg/dL Random Glucose (60-115) mg/dL Calcium (8.4-10.2) mg/dL Magnesium (1.6-2.6) mg/dL Total Bilirubin (0.0-1.0) mg/dL AST (5-37) U/L ALT (0-40) U/L Alkaline Phosphatase (39-117) U/L Troponin I High Sens (<3.5-35.0) ng/L Total Protein (6.5-8.0) g/dL Albumin (3.5-5.0) g/dL Urine Color Urine Appearance Urine pH (5.0-9.0) Ur Specific [place] (1.005-1.025) Urine Protein (Neg-Trace) mg/dL Urine Glucose (UA) (Negative) mg/dL Urine Ketones (Negative) mg/dL Urine Blood (Negative) Urine Nitrite (Negative) Ur Leukocyte Esterase (Negative) Influenza Type A (PCR) (Negative) Influenza Type B (PCR) (Negative) RSV RNA Qual (PCR) (Negative) SARS-CoV-2 RNA (RT-PCR) (Negative) 08/17/25 08/17/25 Range/Units 06:59 11:08 WBC (4.8-10.8) X10*3/uL RBC (4.60-5.80) X10*6/uL Hgb (14.0-18.0) g/dl Hct (42.0-52.0) % MCV (80.0-98.0) fL MCH (27.0-33.0) pg MCHC (31.0-36.0) g/dl RDW (11.0-16.0) % Plt Count (160-400) X10*3/uL MPV (9.4-12.4) fL Immature Gran % (Auto) (0.0-0.4) % Neut % (Auto) (45-73) % Lymph % (Auto) (20-40) % [place] % (Auto) (2-11) % Eos % (Auto) (0-4) % Baso % (Auto) (0-2) % Lymph # (Auto) (1.2-4.9) X10*3/uL [place] # (Auto) (0.1-1.2) X10*3/uL Eos # (Auto) (0.0-0.4) X10*3/uL Baso # (Auto) (0.0-0.2) X10*3/uL Abs Immat Gran (auto) (0.00-0.03) X10*3/uL Absolute Neuts (auto) (2.0-8.3) x10*3/uL Absolute Nucleated RBC (0.0-0.012) X10*3/uL Nucleated RBC % (auto) (0.0-0.2) /100WBC PT (11.2-13.5) SEC INR (0.9-1.1) Sodium (135-145) mmol/L Potassium (3.3-5.1) mmol/L Chloride (96-108) mmol/L Carbon Dioxide (22-29) mmol/L Anion Gap (12-20) BUN (9-16) mg/dL Creatinine (0.5-1.4) mg/dL Estim Creat Clear Calc Estimated GFR POC Glucose 210 H 285 H (60-115) mg/dL Random Glucose (60-115) mg/dL Calcium (8.4-10.2) mg/dL Magnesium (1.6-2.6) mg/dL Total Bilirubin (0.0-1.0) mg/dL AST (5-37) U/L ALT (0-40) U/L Alkaline Phosphatase (39-117) U/L Troponin I High Sens (<3.5-35.0) ng/L Total Protein (6.5-8.0) g/dL Albumin (3.5-5.0) g/dL Urine Color Urine Appearance Urine pH (5.0-9.0) Ur Specific [place] (1.005-1.025) Urine Protein (Neg-Trace) mg/dL Urine Glucose (UA) (Negative) mg/dL Urine Ketones (Negative) mg/dL Urine Blood (Negative) Urine Nitrite (Negative) Ur Leukocyte Esterase (Negative) Influenza Type A (PCR) (Negative) Influenza Type B (PCR) (Negative) RSV RNA Qual (PCR) (Negative) SARS-CoV-2 RNA (RT-PCR) (Negative) Independent Interpretation I performed an independent interpretation of an: EKG (non diagnostic for cc ) and CT Scan Radiology Impression Discussion of test interpretation with radiology: I have reviewed the radiologist's reading. Independent Historian Clinical information obtained from an independent historian. History obtained from or confirmed by: EMS External Record Review External record reviewed: Inpatient record, Office record, Outpatient record, Prior outpatient labs, Prior outpatient radiology, Primary care record and Outside ED record Chronic Conditions Patient?s care impacted by: Other (unclear at this time will speak to family ) Discharge Plan Discharge Clinical Impression: Dementia Patient Disposition: er [facility] Transfer Details: to [facility] Prescriptions: No Action latanoprost 0.005 % drops 1 drp ophthalmic (eye) BEDTIME trazodone 50 mg tablet 50 mg PO BID clopidogrel 75 mg tablet 75 mg PO DAILY levothyroxine 100 mcg tablet 100 mcg PO DAILY tamsulosin 0.4 mg capsule 0.4 mg PO BEDTIME amlodipine 10 mg tablet 10 mg PO DAILY levothyroxine 50 mcg tablet 50 mcg PO DAILY gabapentin 300 mg capsule 300 mg PO TID metoprolol succinate 25 mg tablet extended release 24 hr 25 mg PO DAILY losartan 100 mg tablet 100 mg PO DAILY sertraline 50 mg tablet 50 mg PO DAILY rosuvastatin 40 mg tablet 40 mg PO DAILY insulin glargine [Lantus Solostar U-100 Insulin] 100 unit/mL (3 mL) insulin pen 20 unit subcut QA Trelegy Ellipta 100-62.5-25 mcg blister with device 1 ea INHALATION DAILY nitroglycerin 0.4 mg tablet, sublingual 0.4 mg sublingual NEEDED PRN (Reason: Chest Pain) insulin lispro 100 unit/mL insulin pen See Protocol subcut TIDAC Protocol: Insulin Correction Scale Less than or equal to 110 ---- Give (units): 0 111 to 150 Give (units): 0 151 to 200 Give (units): 2 201 to 250 Give (units): 4 251 to 300 Give (units): 6 301 to 350 Give (units): 8 Greater than 350 Give (units): 10 Call MD if Blood Glucose > : 350 Referrals: [facility] [Other] Referral Note: [facility] Mita Madrigal DO [Primary Care Provider, Family Practice] Print Language: Turkmen
[2025-08-10 11:27] LABS: MANUAL DIFF FLAG NO
[2025-08-10 11:29] LABS: Hematocrit 37.9 % (42.0-52.0); Hemoglobin 12.3 g/dl (14.0-18.0); Imm Gran Abs Auto 0.02 X10*3/uL (0.00-0.03); Imm Gran Pct Auto 0.3 % (0.0-0.4); Lymphocytes Absolute Auto 0.9 X10*3/uL (1.2-4.9); Mean Corpuscular HGB Conc 32.5 g/dl (31.0-36.0); Mean Corpuscular Hemoglobin 26.7 pg (27.0-33.0); Mean Corpuscular Volume 82.4 fL (80.0-98.0); NRBC Abs Auto 0.000 X10*3/uL (0.0-0.012); NRBC Pct Auto 0.0 /100WBC (0.0-0.2); Platelet Count 199 X10*3/uL (160-400); Red Blood Count 4.60 X10*6/uL (4.60-5.80); White Blood Count 6.5 X10*3/uL (4.8-10.8)
[2025-08-10 11:37] LABS: INTERNATIONAL NORM RATIO 1.0 (0.9-1.1); Prothrombin Time 12.3 SEC (11.2-13.5)
[2025-08-10 11:46] LABS: Alanine Aminotransferase 21 U/L (0-40); Albumin Level 4.6 g/dL (3.5-5.0); Alkaline Phosphatase 111 U/L (39-117); Anion Gap 11 (12-20); Aspartate Amino Transferase 26 U/L (5-37); Blood Urea Nitrogen 21 mg/dL (9-16); Calcium 9.6 mg/dL (8.4-10.2); Carbon Dioxide 30 mmol/L (22-29); Chloride 104 mmol/L (96-108); Creatinine Clr Calc Pharmacy 58.2; Estimated Glomerular Filt Rate > 60; Magnesium 2.2 mg/dL (1.6-2.6); Potassium 4.6 mmol/L (3.3-5.1); Sodium 140 mmol/L (135-145); Total Protein 7.2 g/dL (6.5-8.0)
[2025-08-10 11:53] LABS: Troponin-I High Sensitivity 9.4 ng/L (<3.5-35.0)
[2025-08-10 11:55] LABS: Glucose, Whole Blood 82 mg/dL (60-115)
[2025-08-10 12:08] LABS: Resp Syncy Virus RNA Qual PCR NEGATIVE (Negative); SARS COV2 PCR INHOUSE NEGATIVE (Negative)
[2025-08-10 12:10] LABS: Appearance Urine Clear; Glucose Urine UA Negative (Negative); PH 8.0 (5.0-9.0); Specific Gravity - Urine <= 1.005 (1.005-1.025)
--- NOTE | 2025-08-10 13:37 | PC.NURSE ---
PT here for eval
[2025-08-10 13:59] VITALS: BP 168/61; PULSE 68; RESP 18; TEMP 36.9; O2SAT 96
[2025-08-10 14:04] VITALS: BP 168/61; PULSE 68; O2SAT 96
--- NOTE | 2025-08-10 15:03 | PM.PSYCN ---
History of Present Illness Date of Service: 08/10/2025 Chief Complaint: WANDERING/DOESN'T KNOW WHY,?FAILURE TO THRIVE Requesting physician: Jarrell Toscano Discussed with referring provider: Yes Sources of Information: patient interviewed, chart reviewed and crisis/core team assessment reviewed HPI Narrative: Mr. Townsend is an 85 year-old male with hx of dementia. Pt was brought in by family due to wondering. Pertinent labs completed in the ED include CBC with normocytic anemia, stable H&H; CMP without electrolyte abnormalities. BUN 21, Cr 0.84, creatinine clearance 58. UA not suggestive of UTI. Pt seen in the ED with his and daughter by his side. He is lying in bed in NAD. He reports he woke up yesterday and the police arrest him and now he is here which he reports he does not know where he is. He does not know the year nor the month. reports they live together. She states pt sometimes does not sleep and she is up. She reports he has been wondering, leaving the house and then found by either police or one of her daughters who live 1 hors away from them. She reports it is taking a toll on her and she is finding more and more difficult to keep him safe at home. Pt has not been aggressive. No signs of VH/AH. No signs of delusions. Diagnostics Vital Signs (24Hr): Vital Signs - 24 hr 08/10/25 10:38 08/10/25 13:59 08/10/25 14:04 Temperature 97.4 F 98.5 F Pulse Rate 73 68 68 Respiratory Rate 18 18 Blood Pressure 149/64 H 168/61 H 168/61 H Pulse Oximetry 97 96 96 Oxygen Delivery Method Room Air Room Air BMI result Body Mass Index 30.4 Labs 08/10/25 11:19 08/10/25 11:19 Labs: Laboratory Results - last 48 hr 08/10/25 08/10/25 08/10/25 11:19 11:50 12:00 WBC 6.5 RBC 4.60 Hgb 12.3 L Hct 37.9 L D MCV 82.4 MCH 26.7 L MCHC 32.5 RDW 13.5 Plt Count 199 MPV 10.0 Immature Gran % (Auto) 0.3 Neut % (Auto) 75.0 H Lymph % (Auto) 14.5 L [place] % (Auto) 9.4 Eos % (Auto) 0.6 Baso % (Auto) 0.2 Lymph # (Auto) 0.9 L [place] # (Auto) 0.6 Eos # (Auto) 0.0 Baso # (Auto) 0.0 Abs Immat Gran (auto) 0.02 Absolute Neuts (auto) 4.9 Absolute Nucleated RBC 0.000 Nucleated RBC % (auto) 0.0 PT 12.3 INR 1.0 Sodium 140 Potassium 4.6 Chloride 104 Carbon Dioxide 30 H Anion Gap 11 L BUN 21 H Creatinine 0.84 Estim Creat Clear Calc 58.2 Estimated GFR > 60 POC Glucose 82 Random Glucose 97 Calcium 9.6 D Magnesium 2.2 Total Bilirubin 0.3 AST 26 ALT 21 Alkaline Phosphatase 111 Troponin I High Sens 9.4 Total Protein 7.2 Albumin 4.6 Urine Color Yellow Urine Appearance Clear Urine pH 8.0 Ur Specific [place] <= 1.005 Urine Protein Negative Urine Glucose (UA) Negative Urine Ketones Negative Urine Blood Negative Urine Nitrite Negative Ur Leukocyte Esterase Negative Influenza Type A (PCR) NEGATIVE Influenza Type B (PCR) NEGATIVE RSV RNA Qual (PCR) NEGATIVE SARS-CoV-2 RNA (RT-PCR) NEGATIVE Imaging Radiology Impressions: ITS Impressions Head CT 08/10/25 11:28 IMPRESSION: Cerebral atrophy and findings consistent with small vessel ischemic disease of the white matter. No evidence of intracranial hemorrhage. Electronically signed by: Titus Vargas MD 08/10/2025 11:43 AM [facility] Mental Status Exam Mental Status Exam Narrative: Appearance: wearing hospital gown fair hygiene, in NAD Behavior: cooperative Psychomotor: no agitation or retardation noted. Noted resting tremor on right hand. Speech: with expressive/receptive aphasia, spontaneous Mood: good Affect: congruent SI: none HI: none VH/AH: no overt signs Delusions: confabulation Insight/judgement: impaired x 2. Memory/cog: alert, oriented only to self. advanced dementia. Medications Medications Current Medications Acetaminophen (Acetaminophen 325 Mg Tablet) 650 mg PO Q6H PRN PRN Reason: Pain, Mild 1-3,fever,headache Allergies Allergies Allergy/AdvReac Type Severity Reaction Status Date / Time Unable to Assess Allergy Verified 08/10/25 10:53 Assessment & Plan Assessment & Plan (1) Alzheimer's disease with late onset: Status: Acute Code(s): G30.1 - Alzheimer's disease with late onset; F02.80 - Dementia in other diseases classified elsewhere, unspecified severity, without behavioral disturbance, psychotic disturbance, mood disturbance, and anxiety Plan Mr. Townsend is an 85 year-old male with advanced dementia. He is wondering, unable to care for him. No other supports at home to keep both of them safe. Family would like to pursue LTC placement at this time. PLAN 1. No need for inpt [facility] psych as there are no symptoms that can be treated and expected to improve. 2. Placement- memory unit. Total time managing care of this patient today ____ minutes.
--- NOTE | 2025-08-10 16:19 | MHC.CM.ED ---
Received consult for assessment of d/c needs: pt brought in by after being found outside. Pt w/hx dementia and wandering and per spouse, pt doesn't sleep for more than 2-3 hours at a time. No services or DME at home. Spouse states she is unable to keep pt safe at home: has alarms but not installed, police have brought pt back to home x 3 this month. Family not available to assist w/care needs at this time. Spouse has an appt w[facility] next week but is requesting respite or ST placement until she can secure alternative living arrangements. is aware that locked units are in short supply - she is able to private pay for a short period of time if needed. Pt passed PT eval: seen by Leeanne from psych and found to be unsafe to return to home. ED CM to place referrals for a locked dementia unit until other living arrangements are secured by family. HCP copy requested
--- NOTE | 2025-08-10 16:57 | PC.NURSE ---
Report to FELICIA Merrill
--- NOTE | 2025-08-10 19:57 | PHA.MEDREC ---
Pharmacy Consult ? Medication Reconciliation Pharmacy has reviewed the medication reconciliation done by nursing, also added in insulin lispro tidac per sliding scale and nitroglycerin 0.4 mg tablets per pharmacy claims.
[2025-08-10 20:00] VITALS: BP 145/73; PULSE 79; RESP 18; TEMP 36.2; O2SAT 95
[2025-08-10 20:43] LABS: Glucose, Whole Blood 210 mg/dL (60-115)
[2025-08-10] MEDS: Insulin Glargine,Hum.rec.anlog 100 UNIT/ML 10 ML VIAL 20 UNIT SUBCUT (20:45)
[2025-08-10] MEDS: Latanoprost 0.005 % Ophth Sol 2.5 ML DROPS 1 DROP EYE-BOTH (20:45)
--- NOTE | 2025-08-10 23:07 | MHC.CM.ED ---
CM met with patient and family. HCP is at home. will look for it. If she cannot find it, CM will make another. HCP/daughter Mery Townsend () [phone] and daughter Ciara Townsend O'Shun ([phone]). PCP is Haydee Madrigal MD at [facility]. Given a listing of local [facility] with memory care and dementia levels of care. Family has appointment at [facility] next week. Family agreeable to LTC referrals. Will private pay. Family more interested in [facility] than LTC. Referrals made. Pt needs a locked unit, as he wanders.
[2025-08-11 05:28] VITALS: BP 129/60; PULSE 74; RESP 14; TEMP 36.7; O2SAT 96
[2025-08-11 07:20] LABS: Glucose, Whole Blood 54 mg/dL (60-115)
[2025-08-11 07:46] LABS: Glucose, Whole Blood 79 mg/dL (60-115)
[2025-08-11] MEDS: Metoprolol Succinate ER 25 MG TAB.ER.24H PO (09:17)
[2025-08-11 11:16] LABS: Glucose, Whole Blood 278 mg/dL (60-115)
[2025-08-11 14:00] VITALS: BP 152/71; PULSE 95; RESP 18; TEMP 36.6; O2SAT 95
[2025-08-11 16:31] LABS: Glucose, Whole Blood 288 mg/dL (60-115)
[2025-08-11 21:14] LABS: Glucose, Whole Blood 273 mg/dL (60-115)
[2025-08-11] MEDS: Latanoprost 0.005 % Ophth Sol 2.5 ML DROPS 1 DROP EYE-BOTH (21:24)
[2025-08-11 21:50] VITALS: BP 130/63; PULSE 65; RESP 16; TEMP 37.3; O2SAT 96
--- NOTE | 2025-08-12 04:10 | PC.NURSE ---
Assumed care of patient in ER OVF at 1900 Pt is alert and oriented to person and is aware he is in [place]. Patient unaware of present date or situation. Pleasant and cooperative. RA. VSS. Male purewick in place. Patient accepted medications and ate tuna sandwich and drank applejuice for diabetic bedtime snack. POC 273 Sliding scale insulin provided as documented. Bed in lowest position, locked and alarmed. Call button within reach. Awaiting placement with a Memory or Locked unit
[2025-08-12 06:00] VITALS: BP 142/64; PULSE 78; RESP 12; TEMP 37.1; O2SAT 94
[2025-08-12 08:12] VITALS: PULSE 94; RESP 18; O2SAT 91
[2025-08-12] MEDS: Fluticasone/Umeclidinium/Vilanterol 100/62.5/25 BLST.W.DEV 1 PUFF INHALE (08:12)
[2025-08-12 08:17] LABS: Glucose, Whole Blood 466 mg/dL (60-115)
[2025-08-12 08:21] VITALS: BP 138/64; PULSE 84; RESP 18; TEMP 36.9; O2SAT 93
[2025-08-12] MEDS: Metoprolol Succinate ER 25 MG TAB.ER.24H PO (08:43)
[2025-08-12] MEDS: Insulin Glargine,Hum.rec.anlog 100 UNIT/ML 10 ML VIAL 20 UNIT SUBCUT (08:43)
[2025-08-12 10:43] LABS: Glucose, Whole Blood 437 mg/dL (60-115)
[2025-08-12 13:32] LABS: Glucose, Whole Blood 334 mg/dL (60-115)
[2025-08-12 14:00] VITALS: BP 130/63; PULSE 74; RESP 18; TEMP 37.1; O2SAT 93
[2025-08-12 15:59] LABS: Glucose, Whole Blood 373 mg/dL (60-115)
[2025-08-12 19:39] LABS: Glucose, Whole Blood 191 mg/dL (60-115)
[2025-08-12 19:42] VITALS: BP 134/65; PULSE 69; RESP 20; TEMP 36.8; O2SAT 96
[2025-08-12] MEDS: Latanoprost 0.005 % Ophth Sol 2.5 ML DROPS 1 DROP EYE-BOTH (20:24)
--- NOTE | 2025-08-12 21:17 | PC.NURSE ---
pt medicated per MAR, tolerated well. 2 units of insulin given as pt POC was 191.
[2025-08-13 06:00] VITALS: BP 155/77; PULSE 65; RESP 14; TEMP 36.6; O2SAT 95
[2025-08-13 07:33] LABS: Glucose, Whole Blood 176 mg/dL (60-115)
[2025-08-13] MEDS: Fluticasone/Umeclidinium/Vilanterol 100/62.5/25 BLST.W.DEV 1 PUFF INHALE (08:38)
[2025-08-13 08:39] VITALS: PULSE 71; RESP 16; O2SAT 96
[2025-08-13] MEDS: Insulin Glargine,Hum.rec.anlog 100 UNIT/ML 10 ML VIAL 20 UNIT SUBCUT (09:01)
[2025-08-13] MEDS: Metoprolol Succinate ER 25 MG TAB.ER.24H PO (09:01)
--- NOTE | 2025-08-13 11:15 | PC.NURSE ---
Assumed care of patient in ER OVF at 1100 Pt is alert and oriented to person. Patient unaware of present date or situation but states I have something wrong with my head Pleasant and cooperative. Room Air. VSS. Male Purwik in place. Lunctime POC 288. Sliding scale insulin provided as documented. Bed in lowest position, locked and alarmed. Call button within reach. Awaiting placement with a Memory or Locked unit. Family awaiting meeting next week for facility.
[2025-08-13 11:44] LABS: Glucose, Whole Blood 288 mg/dL (60-115)
--- NOTE | 2025-08-13 12:43 | MHC.CM.ED ---
PER REVIEW OF [facility] REFERRALS, [facility], AND [facility] ARE FOLLOWING [facility] ARE WILLING TO OFFER PENDING HCP/POA/GUARDIAN INFO AND PRIVATE PAY DISCUSSION WITH FAMILY. [facility] IS FOLLOWING FOR THE SAME AND ALSO AN AVAILABLE BED. CM FOLLOWING WITH PLAN TO UPDATE FAMILY.
[2025-08-13 14:00] VITALS: BP 150/77; PULSE 71; RESP 18; TEMP 36.4; O2SAT 95
--- NOTE | 2025-08-13 14:44 | PC.NURSE ---
patient irais at bedside visiting and speaking with CM about plan for LTC.
[2025-08-13 16:53] LABS: Glucose, Whole Blood 217 mg/dL (60-115)
[2025-08-13 19:49] VITALS: BP 159/70; PULSE 70; RESP 20; TEMP 36.8; O2SAT 97
[2025-08-13 20:21] LABS: Glucose, Whole Blood 205 mg/dL (60-115)
[2025-08-13] MEDS: Latanoprost 0.005 % Ophth Sol 2.5 ML DROPS 1 DROP EYE-BOTH (20:39)
[2025-08-14 06:00] VITALS: BP 126/56; PULSE 68; RESP 20; TEMP 36.6; O2SAT 96
--- NOTE | 2025-08-14 06:08 | PC.NURSE ---
Assumed care of pt 189908/13/25, pt a/o to self, pleasantly confused. Self-diagonally and pointing at things that aren't there. VSS, POC 205, PT medicated as per NOV, took pill whole with water. PT slept periodically throughout the night, but found several of times awake in bed taking to himself. PT denies pain stated I haven't been in pain in years!
[2025-08-14 07:43] LABS: Glucose, Whole Blood 283 mg/dL (60-115)
[2025-08-14] MEDS: Metoprolol Succinate ER 25 MG TAB.ER.24H PO (07:44)
[2025-08-14] MEDS: Insulin Glargine,Hum.rec.anlog 100 UNIT/ML 10 ML VIAL 20 UNIT SUBCUT (07:45)
[2025-08-14] MEDS: Fluticasone/Umeclidinium/Vilanterol 100/62.5/25 BLST.W.DEV 1 PUFF INHALE (09:30)
[2025-08-14 11:41] LABS: Glucose, Whole Blood 298 mg/dL (60-115)
[2025-08-14 14:00] VITALS: BP 144/67; PULSE 68; RESP 18; TEMP 36.3; O2SAT 95
--- NOTE | 2025-08-14 14:14 | MHC.CM.ED ---
Patient remains in ER overflow. Spoke with patient's daughter, Ciara, via telephone at [phone] Ciara is requesting referrals to [facility], [facility], [place] and [facility]. Patient's toured [facility]. [facility] is unable to offer a bed because they are unable to manage sliding scale insulin. [facility], [facility] and [facility] are unable to offer a bed. [facility] is able to offer a bed. Spoke with daughter, Ciara, and , Mery via telephone. Mery and Ciara are going to talk about accepting a bed at [facility] vs home with private pay care. Will contact CM as soon as a decision has been made. Continue to monitor for d/c needs.
[2025-08-14 16:03] LABS: Glucose, Whole Blood 335 mg/dL (60-115)
[2025-08-14 20:20] LABS: Glucose, Whole Blood 107 mg/dL (60-115)
[2025-08-14] MEDS: Latanoprost 0.005 % Ophth Sol 2.5 ML DROPS 1 DROP EYE-BOTH (21:08)
[2025-08-14 21:55] VITALS: BP 131/60; PULSE 65; RESP 17; TEMP 36.6; O2SAT 97
[2025-08-15 06:12] VITALS: BP 157/67; PULSE 56; RESP 14; TEMP 36.7; O2SAT 99
[2025-08-15 07:50] LABS: Glucose, Whole Blood 212 mg/dL (60-115)
[2025-08-15] MEDS: Fluticasone/Umeclidinium/Vilanterol 100/62.5/25 BLST.W.DEV 1 PUFF INHALE (09:09)
[2025-08-15] MEDS: Metoprolol Succinate ER 25 MG TAB.ER.24H PO (09:09)
[2025-08-15 09:10] VITALS: PULSE 75; RESP 18; O2SAT 96
[2025-08-15] MEDS: Insulin Glargine,Hum.rec.anlog 100 UNIT/ML 10 ML VIAL 20 UNIT SUBCUT (09:10)
[2025-08-15 09:11] VITALS: BP 152/65
--- NOTE | 2025-08-15 10:17 | MHC.CM.ED ---
Addendum entered by Aneta Smyth 08/15/25 14:07: Received telephone call from patient's , Mery. Mery accepts bed at [facility]. [facility] will reach out to to arrange financials. Original Note: Patient remains in ER overflow. Attempted to speak with daughter, Ciara, via telephone at [phone]. Left voicemail requesting return telephone call to discuss d/c planning. Continue to monitor for d/c needs.
[2025-08-15 11:46] LABS: Glucose, Whole Blood 152 mg/dL (60-115)
[2025-08-15 13:49] VITALS: BP 144/67; PULSE 66; RESP 20; TEMP 36.6; O2SAT 95
--- NOTE | 2025-08-15 15:10 | PC.NURSE ---
assumed care of patient, sitting in recliner with camera on. no c/o at this time
[2025-08-15 16:37] LABS: Glucose, Whole Blood 95 mg/dL (60-115)
--- NOTE | 2025-08-15 18:57 | PC.NURSE ---
patient continuously banging on table, talking to self and yelling out. reached out to provider no new orders at this time
[2025-08-15 19:21] VITALS: BP 154/70; PULSE 74; RESP 16; TEMP 36.8; O2SAT 95
[2025-08-15] MEDS: Latanoprost 0.005 % Ophth Sol 2.5 ML DROPS 1 DROP EYE-BOTH (19:23)
--- NOTE | 2025-08-15 19:23 | PC.NURSE ---
per provider okay to give night medications early due to patient agitation
[2025-08-15 19:57] LABS: Glucose, Whole Blood 175 mg/dL (60-115)
--- NOTE | 2025-08-16 04:04 | PC.NURSE ---
* late entry* RN assumed care at 2300; pt is asleep. bed alarm on, video monitor in place, bed in lowest level. call bahena within reach. Will continue to monitor.
[2025-08-16 05:23] VITALS: BP 158/67; PULSE 66; RESP 18; TEMP 36.8; O2SAT 95
[2025-08-16 07:42] LABS: Glucose, Whole Blood 164 mg/dL (60-115)
[2025-08-16] MEDS: Fluticasone/Umeclidinium/Vilanterol 100/62.5/25 BLST.W.DEV 1 PUFF INHALE (07:49)
[2025-08-16 07:50] VITALS: PULSE 71; RESP 18; O2SAT 98
[2025-08-16 08:04] VITALS: BP 153/59; PULSE 77; RESP 18; TEMP 36.7; O2SAT 97
[2025-08-16 08:46] VITALS: BP 153/59; PULSE 77
[2025-08-16] MEDS: Metoprolol Succinate ER 25 MG TAB.ER.24H PO (08:46)
[2025-08-16] MEDS: Insulin Glargine,Hum.rec.anlog 100 UNIT/ML 10 ML VIAL 20 UNIT SUBCUT (08:47)
--- NOTE | 2025-08-16 10:17 | PC.NURSE ---
Care of Pt assumed at change of shift (0700.) Pt is awake and frequently talking with himself. He requires frequent reminder on use of the [employer] system. Breakfast and med pass completed. Pt is resting quietly in bed with camera and bed alarm on.
[2025-08-16 11:23] LABS: Glucose, Whole Blood 273 mg/dL (60-115)
--- NOTE | 2025-08-16 13:30 | MHC.CM.ED ---
Patient remains in ER overflow. [facility] is working with patient's to arrange financials so that patient can transfer to facility. Continue to monitor for d/c needs.
[2025-08-16 14:00] VITALS: BP 122/56; PULSE 67; RESP 16; TEMP 36.8; O2SAT 96
[2025-08-16 16:06] LABS: Glucose, Whole Blood 195 mg/dL (60-115)
--- NOTE | 2025-08-16 19:53 | PC.NURSE ---
This RN assumed pt care @ 1900. Pt attempting to gob, pt redirected back into bed. Tech set bed alarm Pt a&ox2, no signs of distress. Pt reminded to hit call bed, if he needs anything and not to attempt to gob w/o assistance. Plan of care ongoing.
[2025-08-16 20:37] LABS: Glucose, Whole Blood 130 mg/dL (60-115)
--- NOTE | 2025-08-16 20:39 | PC.NURSE ---
POC 130, No insulin coverage needed. Plan of care ongoing.
--- NOTE | 2025-08-16 20:53 | PC.NURSE ---
Pt medicated per mar, tolerated well. Plan of care ongoing
[2025-08-16 21:25] VITALS: BP 114/56; PULSE 65; RESP 18; TEMP 37.6; O2SAT 94
[2025-08-17 06:20] VITALS: BP 141/59; PULSE 61; RESP 16; TEMP 36.6; O2SAT 94
[2025-08-17 07:03] LABS: Glucose, Whole Blood 210 mg/dL (60-115)
[2025-08-17] MEDS: Fluticasone/Umeclidinium/Vilanterol 100/62.5/25 BLST.W.DEV 1 PUFF INHALE (07:41)
[2025-08-17 08:36] VITALS: PULSE 69; RESP 16; O2SAT 97
[2025-08-17] MEDS: Metoprolol Succinate ER 25 MG TAB.ER.24H PO (08:37)
[2025-08-17] MEDS: Insulin Glargine,Hum.rec.anlog 100 UNIT/ML 10 ML VIAL 20 UNIT SUBCUT (08:37)
--- NOTE | 2025-08-17 09:47 | MHC.CM.PN ---
Addendum entered by Colette Pepe RN 08/17/25 11:38: [facility] can accept today after 1:30. BLS transport booked for 2:30pm. RN, ED provider and /HCP aware. Original Note: CM spoke with , Mery, and [facility] quality liaison. Plan for to bring check and sign PSI this morning. Once complete can arrange transfer. CM will continue to follow.
--- NOTE | 2025-08-17 10:21 | HO.WOUND ---
Over Flow Rounding completed 85yr old male present in [facility] ED / OverFlow area - See ED notes for detailed history.? Inpatient Skin Integrity Maintenance Rounding. Patient agreeable to assessment and skin assessment. Brief chart review completed.? Patient denies pain and no concerns for skin [facility]. Purewick in place and working well no leaking noted - if purewick is not able to be in use recommend barrier cream if incontinence continues. Recommend Q 2 hr turns while in bed float heels with pillows off of bed surface and waffle cushion is able to get up to recliner chair. Waffle cushion may be used in bed - applied to patient in bed and he reports increased comfort. Bilateral Heels assessed for dry intact tissue - recommend floating heels off of bed. Buttock, Sacrum and Coccyx assessed - noted to be intact, reddened however remains blanchable. Preventative foam applied. May use preventative foam dressing application to protect from friction and injury development.? Recommend barrier cream twice daily and PRN after episodes of incontinence.? Patient on Hospital bed at this time recommend applying low air loss pump to mattress if available.? Recommend SIPP Activation.
[2025-08-17 11:12] LABS: Glucose, Whole Blood 285 mg/dL (60-115)
[2025-08-17 14:00] VITALS: BP 139/66; PULSE 66; RESP 16; TEMP 36.5; O2SAT 95
[2025-08-17 14:59] VITALS: BP 139/66; PULSE 66; RESP 16; TEMP 36.5; O2SAT 95
== END 2025-08-17 15:00 | disposition skilled nursing facility (03) ==
PROVIDERS: Physician Assistant; Emergency Provider Emergency Medicine; PCP Internal Medicine
DX: G30.1 Alzheimer's disease with late onset (principal); F02.80 Dementia in other diseases classified elsewhere, unspecified severity, without behavioral disturbance, psychotic disturbance, mood disturbance, and anxiety; R41.82 Altered mental status, unspecified; F05 Delirium due to known physiological condition; E11.65 Type 2 diabetes mellitus with hyperglycemia; Z79.4 Long term (current) use of insulin; R26.81 Unsteadiness on feet; R94.31 Abnormal electrocardiogram [ECG] [EKG]; Z03.818 Encounter for observation for suspected exposure to other biological agents ruled out; Z79.899 Other long term (current) drug therapy; Z51.81 Encounter for therapeutic drug level monitoring
CPT/HCPCS: 36415; 70450; 80053; 81003; 82947; 83735; 84484; 85025; 85610; 87637; 93005; 94640; 97162; 99285

== ENCOUNTER → 2025-08-10 10:43 | Outpatient (BNV) | payer MEDICARE, OTHER, SELFPAY | PROVIDERS: Emergency Provider Emergency Medicine; Visit Provider Radiology Diagnostic Radiology | DX: G31.9 Degenerative disease of nervous system, unspecified (principal) | CPT/HCPCS: 70450 ==

== ENCOUNTER → 2025-08-10 10:43 | Outpatient (BNV) | payer MEDICARE, OTHER, SELFPAY | PROVIDERS: Emergency Provider Emergency Medicine; Visit Provider Internal Medicine | DX: R94.31 Abnormal electrocardiogram [ECG] [EKG] (principal); R41.82 Altered mental status, unspecified | CPT/HCPCS: 93010 ==

== ENCOUNTER → 2025-08-10 11:49 | Outpatient (BNV) | payer MEDICARE, OTHER, SELFPAY | PROVIDERS: Emergency Provider Emergency Medicine; Visit Provider Social Worker | DX: G30.1 Alzheimer's disease with late onset (principal); F02.80 Dementia in other diseases classified elsewhere, unspecified severity, without behavioral disturbance, psychotic disturbance, mood disturbance, and anxiety | CPT/HCPCS: 99285 ==